=== PATIENT | female | born 1960 | race Asian ===

== ENCOUNTER 2018-05-11 08:33 | Day surgery (SDC) | payer OTHER, SELFPAY ==
[2018-05-11] VITALS (10 sets, daily range): BP systolic 86–136; BP diastolic 47–64; PULSE 57–80; RESP 12–16; TEMP 35.8–37.1; O2SAT 98–100; BMI 24.9
[2018-05-11] MEDS: SODIUM CHLORIDE 0.9% 1,000 ML 200 ML IV (10:00)
--- NOTE | 2018-05-11 10:16 | P.HP_ITS ---
History of Present Illness Date Patient Seen: 05/11/18 Time Patient Seen: 10:14 Chief complaint: [id number] SCREENING COLONOSCOPY Narrative: Very pleasant and healthy 57-year-old lady with a personal history of colon polyps. Her last colonoscopy was less than 5 years ago she denies any problems or symptoms related to function of her GI tract. She reports she needs colonoscopy as per the health maintenance program. Patient History Surgical History Status post surgery (01/18/11) Family & Social History Family History: Reviewed 05/11/18 by Chelo Rodriguez MD Social History: household members spouse Meds Home Medications Medication Instructions Recorded Confirmed Type [FLAX SEED ] #0 01/18/11 History [METHIMAZOLE] 5 mg PO QDAY #0 01/18/11 History CHOLECALCIFEROL (VITAMIN D3) 2,000 iu PO QDAY #0 02/10/11 History (Vitamin D3) LEVOTHYROXINE SODIUM (Synthroid) 0.05 mcg PO QDAY #0 02/10/11 History [FISH OIL] 1,000 mg PO BID #0 02/10/11 History Allergies Allergy/AdvReac Type Severity Reaction Status Date / Time aspirin Allergy Unknown HIVES Verified 05/11/18 09:35 ibuprofen Allergy Unknown Hives Verified 05/11/18 09:35 Review of Systems Review of Systems All systems reviewed & are unremarkable except as noted in HPI and below Exam Vital Signs (past 8 hours): Vital Signs - 8 hr 3 05/11/18 09:36 Temperature 98.8 F Pulse Rate 59 L Respiratory Rate 16 Blood Pressure 136/64 H Pulse Oximetry 100 Pulse Oximetry 100 Oxygen Delivery Method Room Air Narrative Exam Narrative: Well-nourished well-developed lady in no distress HEENT: Normocephalic and atraumatic, pupils equal round reactive to light accommodation with anicteric sclera Lungs: Clear to auscultation bilateral Heart: Regular rate and rhythm Abdomen: Soft, nontender, active bowel sounds Extremities: Warm well perfused Assessment & Plan Plan: Assessment/Plan Narrative: Very pleasant and very healthy 57-year-old lady with a personal history of colon polyps we discussed risks and benefits of colonoscopy the patient has expressed a desire to have the procedure
--- NOTE | 2018-05-11 10:52 | PM.OP.1 ---
Operative Date/Time/Diagnoses - Date of procedure: 05/11/18 Time of procedure: 10:52 Pre-op diagnosis: Personal history of colon polyps Post-op diagnosis: same Procedure & Clinicians Procedure: Colonoscopy to the cecum Same procedure as scheduled: Yes Indications: Last colonoscopy about 5 years ago Surgeon: Chelo Rodriguez Click Yes if Unassisted: Yes Anesthesia Type: Sedation Operative Notes Findings: 1. Excellent prep 2. No polyps or mass lesions 3. No AV malformations 4. Mild diverticulosis limited to the sigmoid region. Only a few pockets appreciated 5. Grade 1 or 2 internal hemorrhoid Closure Type: not applicable Specimen(s): none sent Estimated Blood Loss (mL): 0 Procedure in detail: After obtaining informed consent, the patient was brought to the GI suite and placed in the left lateral decubitus position on the examination table. After placement of appropriate monitors, the patient was given incremental doses of Versed and Fentanyl until an appropriate level of sedation was achieved. A time out was held per SCOAP protocol. A digital rectal examination was performed and did not reveal any masses or obstructing lesions. The colonoscope was gently passed into the patient's anus and the entire colon navigated to the level of the cecum with minimal difficulty. Once in the cecum, the scope was withdrawn being sure to go before and beyond all mucosal folds and prominences and get an excellent examination. The findings are noted above. At the level of the rectal vault, the scope was retroflexed and the internal anal canal was examined. The scope was straightened and air aspirated from the colon. The instrument was removed from the patient's body and the procedure was concluded. The patient was allowed to awaken from sedation without difficulty and taken to the post-anesthesia care unit in good condition. Total sedation time 18 min Total withdrawal time 11 min Complications: none Condition: stable Disposition: PACU Plan for aftercare: 1. Discharge to home 2. Plan for next colonoscopy in 5 years or as clinically indicated
[2018-05-11] MEDS: MIDAZOLAM 5 MG/5 ML VIAL IV (10:57)
[2018-05-11] MEDS: fentaNYL 250 MCG/5 ML INJ IV (10:57)
--- NOTE | 2018-05-11 11:37 | SUR.PHASEII ---
BROUGHT BACK, BP BETTER, PT ASYMPTOMATIC MARIEL RN DISCUSSED DISCHARGE INSTRUCTION.
== END 2018-05-11 11:52 | disposition home or self-care (01) ==
PROVIDERS: Family Provider Family Medicine; PCP Family Medicine; Visit Provider Surgery
PROC: 0DJD8ZZ Inspection of Lower Intestinal Tract, Via Natural or Artificial Opening Endoscopic (ICD-10-PCS; CPT 45378; principal; 2018-05-11 09:45)
DX: Z12.11 Encounter for screening for malignant neoplasm of colon (principal); Z86.010 Personal history of colon polyps; K57.30 Diverticulosis of large intestine without perforation or abscess without bleeding; K64.1 Second degree hemorrhoids
CPT/HCPCS: 45378; 99152; J2250; J3010

== ENCOUNTER → 2018-12-18 12:59 | Outpatient (CLI) | payer OTHER, SELFPAY ==
--- NOTE | 2018-12-18 | DI.US.S_ITS ---
PROCEDURE: US ABD AORTA ANEURYSM SCREEN INDICATIONS: FAMILY HISTORY OF AAA TECHNIQUE: Real time scanning was performed of the aorta and iliac arteries, with image documentation. COMPARISON: [facility], CT, ABDOMEN/PELVIS WITH CONTRAST, 02/11/2011, 14:13. FINDINGS: Aorta: Proximal aortic diameter measures 2.0 cm. Mid-aorta measures 1.9 cm. Distal aortic diameter is 1.2 cm. Iliac arteries: Right common iliac artery measures 1.0 cm. Left common iliac artery measures 0.9 cm. IMPRESSION: No abdominal aortic or proximal common iliac artery aneurysm. Dictated by: Yeyo Hernandez [facility] Interpreted: Christian Low MD on 12/18/2018 at 14:06 Approved by: Christian Low M.D. on 12/18/2018 at 16:55
== END ==
PROVIDERS: Family Provider Family Medicine; PCP Family Medicine; Visit Provider Family Medicine
DX: Z13.6 Encounter for screening for cardiovascular disorders (principal); Z82.49 Family history of ischemic heart disease and other diseases of the circulatory system
CPT/HCPCS: 76706